=== PATIENT | female | born 1980 | race Caucasian/White ===

== ENCOUNTER 2019-12-12 00:53 | Emergency (ER) | payer MEDICARE ==
[~2019-12-12] VITALS: Ht 160 cm; Wt 90.7 kg
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
[2019-12-12 00:58] VITALS: BP 124/82
[2019-12-12] MEDS ORDERED: Albuterol ud Inhalation HHN ONE (01:00)
[2019-12-12] MEDS ORDERED: PREDNISONE20 MG ORAL (01:03)
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
--- NOTE | 2019-12-12 01:04 | NUR ---
ED Nurse Note: spoke with oliva from [facility], informed that patient will be going back after breathing treatment.
--- NOTE | 2019-12-12 01:10 | NUR ---
ED Nurse Note: RT at bedside giving pt breathing treatment
[2019-12-12 04:40] VITALS: BP 124/82
== END 2019-12-12 01:30 | disposition home or self-care (01) ==
LOC: EDBD 00:53 → EMR 01:16
DX: J45.21 Mild intermittent asthma with (acute) exacerbation (principal); Z77.22 Contact with and (suspected) exposure to environmental tobacco smoke (acute) (chronic); I10 Essential (primary) hypertension; F31.9 Bipolar disorder, unspecified; F20.9 Schizophrenia, unspecified
CPT/HCPCS: 99283; J7512